=== PATIENT | female | born 1990 | race Caucasian/White ===

== ENCOUNTER 2022-08-27 15:57 | Inpatient (IN) | payer OTHER, SELFPAY ==
[2022-08-27] VITALS (57 sets, daily range): BP systolic 88–153; BP diastolic 50–78; PULSE 68–105; RESP 16; TEMP 36.6–37.1; O2SAT 87–100; BMI 25.8
[2022-08-27] MEDS: LACTATED RINGERS 1000 ML 1,000 ML 999 ML IV ×3 (16:19→20:42)
[2022-08-27 16:27] LABS: Basophils Percent Auto 0.1 % (0.0-3.0); Eosinophils Percent Auto 0.5 % (0.0-7.0); Hematocrit 29.7 % (33.0-51.0); Hemoglobin* 9.3 gm/dL (12.0-16.0); Immature Granulocytes Pct Auto 0.5 %; Lymphocytes Percent Auto 14.4 % (20-44); Mean Corpuscular HGB Conc 31 gm/dL (32-36); Mean Corpuscular Hemoglobin 28 pg (26-34); Mean Corpuscular Volume 88 fL (80-100); Monocytes Percent Auto 6.4 % (0.0-11.0); Neutrophils Percent Auto 78.1 % (42.0-72.0); Platelet Count* 326 K/uL (140-440); RDW Coefficient of Variation % 16.3 % (11.5-15.5); Red Blood Count 3.38 m/uL (4.00-5.20); White Blood Count* 14.04 K/uL (4.50-11.00)
[2022-08-27 16:41] LABS: SARS PCR* Negative SARS-CoV-2 (Negative)
[2022-08-27] MEDS: LIDOCAINE 2% (PF) 5 ML VIAL EPIDURAL (16:44)
[2022-08-27] MEDS: ROPIVACAINE 0.2% 100 ml 100 ML 12 MG EPIDURAL ×2 (16:44→23:30)
[2022-08-27 16:50] LABS: Slide Review Reflex No
--- NOTE | 2022-08-27 16:57 | P.ANBPRC_ITS ---
[facility] Social History Smoking Status: Never smoker Results Labs Labs: Laboratory Results - last 24 hr 08/27/22 08/27/22 15:50 16:14 WBC 14.04 H RBC 3.38 L Hgb 9.3 L Hct 29.7 L MCV 88 MCH 28 MCHC 31 L RDW Coeff of Kurt 16.3 H Plt Count 326 Neut % (Auto) 78.1 H Lymph % (Auto) 14.4 L Burnett % (Auto) 6.4 Eos % (Auto) 0.5 Baso % (Auto) 0.1 Neut # (Auto) 11.00 H Lymph # (Auto) 2.00 Burnett # (Auto) 0.90 Eos # (Auto) 0.10 Baso # (Auto) 0.00 Abs Immat Gran (auto) 0.10 Imm/Tot Granulo (auto) 0.5 SARS-CoV-2 (PCR) Negative SARS-CoV-2 Vital Signs Vital Signs: Last Vital Signs Pulse 83 08/27/22 16:56 BP 115/55 L 08/27/22 16:56 Pulse Ox 100 08/27/22 16:46 Anesthesia Procedures Epidural Insertion Patient Location: OB Start Time: 16:00 Stop Time: 17:00 Start Date: 08/27/22 Stop Date: 08/27/22 Reason for Block: procedure for pain Patient Position: sitting Performed By: Anny Arreola Preanesthetic Checklist: IV checked, risks and benefits discussed, monitors and equipment checked, pre-op evaluation, timeout performed and anesthesia consent Prep: chlorhexidine gluconate Monitoring: blood pressure monitoring, continuous pulse oximetry and heart rate Approach: midline Vertebral Space: lumbar (1-5) Epidural Technique: TAMARA saline Needle Type: Tuohy needle Injection Technique: continuous catheter (continuous catheter) Needle gauge: 17 Needle Length (cm): 10 cm Needle Insertion Depth (cm): 5 Catheter Gauge: 19 Catheter Type: multi-orifice Catheter at skin depth (cm): 14 Test Dose Result: negative and lidocaine 1.5% with epinephrine 1 to 200,000
--- NOTE | 2022-08-27 17:02 | PM.OBHPLI ---
OB - H&P: HPI Labor/Induction History of Present Illness Time Seen by Provider: 17:03 Date Seen: 08/27/22 Chief Complaint: Gestational age: 38 weeks 1/7 days HPI: Summer is a 32-year-old 4 para 1021 who is being admitted to the center in labor. Her care was performed in [place] and she was planning on delivering at [address] but was diverted here as there Center is reported to be full. She saw Dr. Edward for care. Painful contractions started approximately noon today. Her water is not broken. Baby has been moving normally. Her contractions are approximately every 3 minutes. She would like to have an epidural for labor analgesia. Per the patient's report her blood type is A positive and GBS status is negative. Awaiting chart. Patient states that she had significant anemia in and had an iron infusion last weekend on 08/21/2022. She also underwent an external cephalic version for fetus in breech presentation on 08/24/2022 that was successful. The fetus was noted to be vertex at her clinic visit on 08/25/2022. I performed a bedside ultrasound which confirmed vertex presentation. CBC and type and screen were ordered. ALLERGIES: NKDA MEDICATIONS: See EMR OBSTETRIC HISTORY: G 4 P 1021. One Vaginal delivery, 0 C-sections, 2 miscarriages, and 0 abortions. 1 living child. Delivery history: 1. 2020: 38 and 5/7th weeks. Vacuum assisted vaginal delivery for prolonged 2nd stage. Male, Joaquin. [facility] [id number] [facility] in [place], [place] GYNECOLOGIC HISTORY: History of sexually transmitted infections: No. History of PID: No History of MRSA: No Last pap smear: not sure. MEDICAL HISTORY: 1. Anemia affecting in the 3rd trimester. SURGICAL HISTORY: 1. [place] teeth. SOCIAL HISTORY: Relationship status: . 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 Blood transfusion is acceptable if needed. Smoker: No, lifetime nonsmoker. E-cigs: No. Alcohol: No: None during . Illicit or recreational drug use: No. Dietary Restrictions: None She feels safe at home. She denies abuse. FAMILY HISTORY: No family history of: defects, stillbirth, multiple losses, inherited or genetic abnormalities or developmental delay. 13 POINT COMPREHENSIVE REVIEW OF SYSTEMS: negative other than as dictated above. GENERAL APPEARANCE: Pleasant, , well-groomed woman, breathing through contractions VITAL SIGNS: as noted in nursing notes HEAD: Normocephalic, atraumatic. THYROID: no masses, nodularity, tenderness or enlargement. LUNGS: Clear to auscultation bilaterally without wheezes, rales or rhonchi. HEART: Regular rate and rhythm with normal S1 and S2. No gallop, rub or murmur. ABDOMEN: Gravid. Soft, nontender, nondistended, with normal bowels sounds throughout. FUNDAL HEIGHT: 38 cm PRESENTATION: Vertex by bedside ultrasound. EFM: Baseline: 120s, moderate variability, positive accelerations, negative decelerations. Reactive. Category 1. SVE per nursincm/ 80 %/ High w/ bulging bag of water. EXTREMITIES: No cyanosis, clubbing, or edema. (-) varicosities. NEUROLOGIC: Normal gait and balance. Normal deep tendon reflexes at bilateral patella 2+/2, equal without clonus. PSYCHIATRIC: alert and oriented x3. Normal speech pattern, eye contact and affect. SKIN: Warm, dry, and well perfused. Good turgor. No lesions, nodules or rashes. ASSESSMENT: Uasmjz-[id number]-fpwr-old G 4 P 1021 at 38 and 1/7 weeks gestation in labor. PLAN: 1. Admission to the center. 2. Patient desires epidural for labor analgesia 3. Expect vaginal delivery. 4. GBS negative 5. Blood type A positive 6. AROM when able. 7. Awaiting record. Chief complaint: Maternity Narrative: Summer Grimaldo is a 32 year old female OB - H&P: Exam Physical Exam: Vital signs: Pulse BP Pulse Ox 83 115/55 L 100 08/27/22 16:56 08/27/22 16:56 08/27/22 16:46 OB - Results Labs Labs: Short CBC 08/27/22 Range/Units 16:14 WBC 14.04 H (4.50-11.00) K/uL Hgb 9.3 L (12.0-16.0) gm/dL Hct 29.7 L (33.0-51.0) % Plt Count 326 (140-440) K/uL
[2022-08-27] MEDS: PHENYLEPHRINE 100 MCG/ML SYRINGE IVP ×3 (19:16→19:51)
[2022-08-27] MEDS: ePHEDrine sulfate 5 MG/ML inj 10 MG IVP (19:59)
[2022-08-27] MEDS: OXYTOCIN 30 unit/500 ML in NS 30 UNIT/500 ML BAG IVPB (23:35)
--- NOTE | 2022-08-27 23:56 | P.OBPN_ITS ---
Subjective Time Seen by Provider: 23:57 Date Seen: 08/27/22 Narrative: Subjective: Patient is comfortable w/ epidural. AROM performed at approximately 9pm. At that time: SVE: 6cm/90%/-1. Vital signs: Per electronic medical record. EFM: Baseline 130, + accelerations, no decelerations, moderate variability, reactive. Category 1. [place]: Contractions every 2 minutes. SVE: 6 cm/90%/-1 small amount of caput. Assessment: 32-year-old 4 para 1021 at 38 weeks 1 day gestation labor with no cervical change management consultant 2.5 hours Plan: 1. Start Pitocin for augmentation of labor, the patient's contractions are close together so an IUPC may be needed to dose Pitocin safely. 2. The patient has an epidural for labor analgesia. Objective Vital Signs: Last Vital Signs Temp 97.9 F 08/27/22 15:19 Pulse 71 08/27/22 23:45 Resp 16 08/27/22 15:19 BP 91/54 L 08/27/22 23:45 Pulse Ox 99 08/27/22 20:02
[2022-08-28] VITALS (59 sets, daily range): BP systolic 92–129; BP diastolic 50–98; PULSE 73–106; RESP 14–20; TEMP 36.6–37.4; O2SAT 97–100
[2022-08-28] MEDS: LACTATED RINGERS 1000 ML 1,000 ML 125 ML IV (02:42)
--- NOTE | 2022-08-28 02:46 | P.OBPN_ITS ---
Subjective Time Seen by Provider: 02:47 Date Seen: 08/28/22 Narrative: Subjective: Patient is comfortable w/ epidural. Pitocin: 3 milliunits/minute. Verbal consent obtained to place an intrauterine pressure catheter if her cervix remains 6 cm dilated. Vital signs: Per electronic medical record. EFM: Baseline 130-140, (+) accelerations, (-) decelerations, moderate variability, reactive. Category 1. [place]: Contractions every 2 minutes. IUPC placed. SVE: 6 cm/90%/-1. Small amount of caput. Assessment: 32-year-old 4 para 1021 at 38 weeks 2 days gestation augmentation of labor after spontaneous onset of labor with no progress in dilation over the last 5 hours. Plan: 1. Continue Pitocin per labor augmentation protocol. 2. Inadequate labor by preeti parkinson. Objective Vital Signs: Last Vital Signs Temp 98.8 F 08/27/22 23:35 Pulse 76 08/28/22 02:45 Resp 16 08/27/22 15:19 BP 105/57 L 08/28/22 02:45 Pulse Ox 99 08/27/22 20:02
[2022-08-28] MEDS: ONDANSETRON 2 MG/ML inj 4 MG IV (03:23)
[2022-08-28] MEDS: ROPIVACAINE 0.2% 100 ml 100 ML 12 MG EPIDURAL (04:00)
--- NOTE | 2022-08-28 04:47 | P.OBPN_ITS ---
Subjective Time Seen by Provider: 04:48 Date Seen: 08/28/22 Narrative: Subjective: Patient is comfortable with an epidural. She received a bolus of her epidural approximately 4:15 a.m. Pitocin: 10 milliunits/minute. Starting in approximately 4:28 a.m. There was noted to be repetitive late decelerations. Vital signs: Per electronic medical record. EFM: Baseline 140's, (-) accelerations, +) repetitive late decelerations over the last 20 minutes, moderate variability, non-reactive. Category 2. IUPC: Contractions every 2-4 minutes. [place] units: 120-135/10 minutes SVE: Deferred. Assessment: 32-year-old 4 para 1021 at 38 weeks 2 days gestation with no progress in the active phase of labor, inadequate contractions with IUPC, repetitive late decelerations in the last 20 minutes. Plan: 1. Stop pitocin now: restart at 5mu/min once a reactive tracing is re-est ablished. 2. If late decelerations are persistent and repetitive after stopping pitocin or reoccur once Pitocin is restarted will likely recommend primary for non-reassuring heart rate tracing remote from delivery. Objective Vital Signs: Last Vital Signs Temp 99.4 F 08/28/22 02:41 Pulse 76 08/28/22 04:32 Resp 16 08/27/22 15:19 BP 98/57 L 08/28/22 04:32 Pulse Ox 99 08/27/22 20:02
[2022-08-28] MEDS: TRANEXAMIC ACID 100 MG/ML INJ 1000 MG IV (07:07)
--- NOTE | 2022-08-28 07:53 | PM.OBPNL ---
Subjective Date Seen: 08/28/22 Narrative: I was asked to come in room because patient was a rim and had been unvoluntarily pushing. I evaluated at bedside and found just a anterior rim, associated most likely with a cervical nabothian cyst. Patient stated that during her last delivery she had the same thing happen and she had this pushed out I scrubbed in and tried to push the anterior lip out, which he did and got to complete. She is a great pusher. There is a significant caput and upon further evaluation of presentation, this baby is OP. We pushed for almost 1 hour with little descent past +1 and this is caput. We also tried different positions for pushing, closed knee, closed knee on the left side. Patient is exhausted, asking about alternatives. I explained that baby is too high for me to help with a vacuum, alternative is a section. Patient would like to proceed with delivery. Objective Vital Signs: Last Vital Signs Temp 99.4 F 08/28/22 02:41 Pulse 81 08/28/22 07:47 Resp 16 08/27/22 15:19 BP 109/55 L 08/28/22 07:47 Pulse Ox 99 08/27/22 20:02 Pelvic Exam Dilation (cm): 10 Effacement (%): 100 Station: 0, caput at +1 Contractions Monitor mode: Internal Contraction pattern: Regular Contraction intensity: Strong/Firm Pitocin Rate (mU/min): 0 Assessment Station: 0 Status: Category ll Heart Rate Baseline: 130 Pediatric Care Coordinator Variability: Moderate (6-25) Monitor Decelerations: Episodic Plan Plan: Unscheduled delivery. Reviewed with patient and informed consent, discussed risk of surgery including bleeding, infection, damage to nearby organs, blood clots. Discussed interventions that we perform to decrease these risks. Discussed [facility] section.
--- NOTE | 2022-08-28 10:17 | P.OBPRC_ITS ---
Procedure Pre-op/Post-op diagnoses: Pre-Op/Post-Op Diagnoses Operation Date: 08/28/22 09:15 <No data on this case meets the specified criteria> Procedure Done: only Procedure Details: Procedures Operation Date: 08/28/22 09:15 Actual Procedure Side Surgeon p Section Greer Heredia MD Commercial Baker Helper: Ranjana Barriga Estimated blood loss (mL): 882 Disposition: floor Anesthesia type: Epidural Complications: Uterine atony w/o hemorrhage, right hysterotomy extension Narrative: PREOPERATIVE DIAGNOSES: 1. Intrauterine at 38 2 /7 weeks' gestation. 2. Arrest of descent, OP presentation POSTOPERATIVE DIAGNOSES: 1. Intrauterine at 38 2 /7 weeks' gestation. 2. OP presentation NAME OF PROCEDURE: Primary low transverse section. ANESTHESIA: Epidural COMPLICATIONS: Uterine atony w/o hemorrhage, right hysterotomy extension Quantitative BLOOD LOSS: 882mL DRAINS: [place] to gravity. FINDINGS: Live-born male infant, OP presentation, Apgars 9 and 9 at 1 and 5 minutes respectively. weight 7 lb 14 oz. PROCEDURE: After obtaining informed consent, the patient was taken to the operating room where epidural anesthesia was obtained and found to be adequate. She was prepared and draped in the normal sterile fashion in the dorsal supine position with a leftward tilt. A Pfannenstiel skin incision was made with a scalpel about 2 cm above symphysis pubic bone, 8-10 cm in length. This incision was carried down to the underlying layer of fascia with the Bovie and scalpel. The fascia was incised in the midline and the incision extended laterally. The rectus muscles were then in the midline. The [place] O retractor was then placed into the incision. The lower uterine segment was then incised in a transverse fashion with the scalpel. Upon entry into the uterus, meconium stained amniotic fluid was noted. The uterine incision was extended cephalo caudally with blunt finger fractionation. head was brought to incision and turned to ROT presentation and wit fundal pressure delivery of the head was performed atraumatically followed by the remainder of the body. The cord was do ubly clamped and cut, and the infant was handed off the field to warmer for evaluation. The placenta was delivered spontaneously with umbilical cord traction and fundal massage. The uterus was cleared of all clots and debris. Hysterotomy incision extension to the right lower uterine segment of about 4cm. The uterine incision was reapproximated in a running locking fashion with a 0 Vicryl suture. A 2nd layer of the same suture was used to imbricate in horizontal fashion. The gutters were inspected and cleared of blood clot. Santo utilized to further help with hemostasis of small bleeding vessels at the lower uterine segment bilaterally. All instruments and retractors were removed. Peritoneum layer closed with Vicryl 3-0.The subfascial tissues were carefully inspected and hemostasis assured. The fascia was reapproximated in a running fashion with a looped 0 Vicryl suture. The subcutaneous tissues were inspected and hemostasis was assured. The subcutaneous fat layer was not reapproximated since it was ;ess than 2cm. The skin was closed in a subcuticular fashion with 4-0 Vicryl. LiquiBand and dressing were applied. The patient tolerated the procedure well. Sponge, lap, needle, and instrument counts were reported as correct x2. The patient was taken to the recovery room, awake, and in stable condition. She did receive 2 grams of IV Ancef preoperatively. In order to control bleeding, Methergine was utilized to help with uterine tone while the uterus was beign closed. Also a 1g dose of TXA given during procedure. Again, knowing that we started with a lower hemoglobin to help prevent heavier bleeding. Patient had already received one dose of TXA during delivery process when she was pushing as was expected and this was the original plan again due to concerns of starting low hemoglobin. Will follow up vital signs closely, will order routine hemoglbin tomorrow morning, unless any significant changes were to happen.
--- NOTE | 2022-08-28 10:29 | W.ANESCHARGE ---
Anesthesia Charges Start Date/Time Anesthesia Start Date: 08/28/22 Anesthesia Start Time: 08:43 Stop Date/Time Anesthesia Stop Date: 08/28/22 Anesthesia Stop Time: 10:11 Summary Emergency: Yes
--- NOTE | 2022-08-28 10:32 | W.PM.NB ---
Nerve Block Nerve Block Time Seen by Provider: 08:43 Date Seen: 08/28/22 Type of block requested by surgeon for post-operative analgesia: TAP Side: bilateral Time out performed: Yes Verification of patient name: Yes Verification of date of : Yes Site marking: site marked Name of person performing procedure: GISELLA Arreola Continuous monitoring Was continuous monitoring of O2 sat, B/P, groundwater monitoring technician, recorded every 15 minutes?: Yes Procedure Checklist: sterile prep, needles and gloves Ultrasound guided. Images saved: Yes Medications given in 5ml increments after negative aspiration: Marcaine (30 total) %: 0.25 mL: 30 Needle gauge: 20 and Exparel (10 total) mL: 5 Needle gauge: 20 Patient tolerated procedure well: Yes Block Charges Block Charge (with Pro Fee): TAP Bilateral Use of Ultrasound Machine for Block: Yes- US Guidance/pain block
[2022-08-28] MEDS: ACETAMINOPHEN 500 MG TABLET 1000 MG PO ×2 (13:43→19:42)
[2022-08-28] MEDS: KETOROLAC 30 MG/ML inj IVP ×3 (15:23→22:26)
[2022-08-29] VITALS (11 sets, daily range): BP systolic 90–96; BP diastolic 49–60; PULSE 86–102; RESP 16–18; TEMP 36.4–37.2; O2SAT 97–98
[2022-08-29] MEDS: KETOROLAC 30 MG/ML inj IVP ×2 (04:29→10:56)
[2022-08-29 04:34] LABS: Hemoglobin* 7.4 gm/dL (12.0-16.0)
[2022-08-29] MEDS: DOCUSATE SODIUM 100 MG CAPSULE PO (08:24)
[2022-08-29] MEDS: FERROUS SULFATE 325 MG TABLET PO (08:24)
--- NOTE | 2022-08-29 09:48 | PM.OBPNCS1 ---
OB - PN: A/P Assessment and Plan (1) Status post delivery: Status: Acute Assessment and Plan: Postoperative day 1, doing well. Postop hemoglobin 7.4 mg/dL, patient started with hemoglobin at 9.6 mg/dL, this is consistent with surgical blood loss. Recommendation was given for blood transfusion. We reviewed other alternatives such as IV iron, oral iron therapy and how this would take a longer time to improve her hemoglobin. Patient also states that she always has her hemoglobin low in the 9 range even prior to , recommended for her to be evaluated by a creative director . Patient accepts blood transfusion will proceed with this today. Will repeat a hemoglobin at least 4-6 hours after blood transfusion. Otherwise, continue routine postop cares, patient would like to consider to go home tomorrow if everything continues to be stable. OB - PN: Subj Subjective Date Seen: 08/29/22 Patient comments: pain well controlled, tolerating diet and flatus present [place] infant status: and doing well Narrative: Patient has been doing well, pain is well controlled, no nausea or vomiting, she has been able to urinate and has paased gas. Hemoglobin was 7.4mg/dL. Patient denies SOB, heart palpitations, dizziness with standing up or walking. OB - PN: Obj Exam Physical Exam: Vital signs: Temp Pulse Resp BP Pulse Ox O2 Del Method 97.6 F 93 16 95/51 L 97 08/29/22 08:26 08/29/22 08:26 08/29/22 08:26 08/29/22 08:26 08/29/22 08:26 08/29/22 08:26 Narrative: VITAL SIGNS: As noted above. GENERAL APPEARANCE: Alert, cooperative female in no acute distress. MOOD & AFFECT: Normal. Chest: Clear to auscultation bilaterally, regular rate rhythm of the heart. ABDOMEN: Soft, non-distended and nontender. Incision healing well, no surrounding erythema, induration or abnormal discharge. : Normal lochia. EXTREMITIES: Nonedematous. Well perfused. Nontender. Urinary Catheter Management: Urethral: Cath placed during this visit: yes, but has since been removed by the nurse Reason for continuing: surgical procedure Insertion date: 08/28/22 Insertion time: 08:50 Removal date: 08/28/22 Removal time: 19:50 OB - PN: Obj Data Labs Labs: Laboratory Results - last 24 hr 08/27/22 08/29/22 16:14 03:37 Hgb 7.4 L* Crossmatch (AHG) See Detail
[2022-08-29] MEDS: IBUPROFEN 600 MG TABLET PO (17:12)
[2022-08-29] MEDS: ACETAMINOPHEN 500 MG TABLET 1000 MG PO (20:21)
[2022-08-30 00:10] VITALS: BP 97/60; PULSE 72; RESP 18; TEMP 36.6; O2SAT 96
[2022-08-30 06:23] LABS: Hemoglobin* 8.4 gm/dL (12.0-16.0)
[2022-08-30] MEDS: DOCUSATE SODIUM 100 MG CAPSULE PO (07:50)
[2022-08-30] MEDS: FERROUS SULFATE 325 MG TABLET PO (07:51)
[2022-08-30] MEDS: IBUPROFEN 600 MG TABLET PO (07:51)
[2022-08-30 07:53] VITALS: BP 109/64; PULSE 81; RESP 18; O2SAT 96
--- NOTE | 2022-08-30 08:35 | P.DS_ITS ---
DS: Providers Provider Time Seen by Provider: 08:00 Date Seen: 08/30/22 Date of admission: 08/27/22 15:57 Primary care physician: Not a Local Provider Admitting Clinician: Ashley Cannon MD Attending Physician on discharge: Ashley Cannon MD Date of Discharge: 08/30/22 DS: Diagnosis Discharge Diagnosis (1) Status post delivery: Status: Acute (2) Lactating mother: Status: Acute (3) Anemia: Status: Acute Exam Narrative: Exam Narrative: GENERAL APPEARANCE:? normal affect, alert, no distress? MOOD:? appropriate? CHEST:? clear to auscultation and percussion? HEART:? regular rate and rhythm? ABDOMEN:? soft, non-tender the uterine fundus is 1 cm Below Umbilicus, Midline and is appropriate for the stage of recovery.? PERINEUM:? exam declined.? EXTREMITIES:? normal and no edema? Skin: Incision well approximated without drainage, redness or edema. No active bleeding?? Doing well? She is requesting discharge home.? Const: Vital Signs, click to edit/add: Vital Signs - 24 hr 08/29/22 12:51 08/29/22 13:11 08/29/22 13:54 Temperature 98 F 98.2 F 98.2 F Pulse Rate 92 102 H 102 H Pulse Rate [Blood Pressure Cuff] Respiratory Rate 18 18 18 Blood Pressure 90/52 L 96/59 L 93/60 Blood Pressure [Ri ght Arm] Pulse Oximetry 97 98 97 Oxygen Delivery Me thod 08/29/22 13:57 08/29/22 15:31 08/29/22 15:32 Temperature 98.3 F 98.9 F 98.9 F Pulse Rate 100 98 Pulse Rate [Blood Pressure Cuff] 98 Respiratory Rate 18 18 18 Blood Pressure 93/58 L Blood Pressure [Ri ght Arm] Pulse Oximetry 97 98 98 Oxygen Delivery Me thod Room Air 08/30/22 00:10 08/30/22 07:53 Temperature 98 F Pulse Rate Pulse Rate [Blood Pressure Cuff] 72 81 Respiratory Rate 18 18 Blood Pressure Blood Pressure [Ri ght Arm] 97/60 109/64 Pulse Oximetry 96 96 Oxygen Delivery Me thod Room Air Room Air Documenting provider has reviewed patient's vital signs: yes DS: Data Data Completed and Pending Labs on day of discharge: Labs from last 24 hours 08/30/22 08/27/22 06:15 16:14 Hgb 8.4 L Blood Type A Positive Antibody Screen NEGATIVE Crossmatch (G) See Detail OB - DS: Summary Hospital Course Hospital Course: Patient is a 32year old, G 4 now P 2? admitted on 08/27/2022 at 38 Weeks, 2 Days gestation for active labor.? She had an uncomplicated delivery after pushing for 1 hour for failure to descend.? She delivered a viable male infant.? She is breast feeding and reports things are well.? the patient has done well.? Her pain is well controlled with current medications.?She is having some abdominal tenderness but states that it feels similar to the soreness that she experienced after her previous delivery She has no new complaints.? Vitals have been stable. She has remained afebrile. She is voiding without difficulty. She is passing gas and has not had a bowel movement. She is anemic but is ambulating without difficulty and denies any dizziness or weakness. she has had anemia throughout her and has been encouraged to see hematology . She is unsure what she is planning for control.?Options compatible with reviewed. She is unsure at this time if she will follow up here or with her provider in [place] whom she saw throughout her .?? Peripartum Data Procedures: Procedures Operation Date: 08/28/22 09:15 Actual Procedure Side Surgeon p Section Greer Heredia MD complications: none [place] Infant Gender: Male Infant Discharge Plan: Home Status at Discharge Functional status at discharge: independent ambulation Overall status at discharge: patient is progressing back to baseline Time Spent with Patient Time attestation: Total time spent providing and/or coordinating discharge services: Discharge Plan Discharge Disposition: Home, Self-Care Date of Admission: 08/27/22 15:57 Attending Provider on Discharge: Alessandra Flores Primary Care Provider: Provider,Not a Local Condition: Stable Anticipated Discharge Date/Time: 08/30/22 10:00 Discharge Medications: New docusate sodium 100 mg Capsule 100 mg PO DAILY Qty: 100 0RF ibuprofen 600 mg Tablet 600 mg PO Q6H PRN (Reason: Pain) Qty: 90 0RF oxycodone 5 mg Tablet 5 - 10 mg PO Q4H PRN (Reason: Pain) Qty: 7 0RF Discharge Orders: Discharge Order (Routine); Ordered 08/30/22 Ordered By: Alessandra Flores Patient Education: OB Over the Counter Medication Information, OB /Breast Feeding Additional Instructions: Discharge instructions were reviewed with the patient including signs and symptoms of infection and home going medications Activity restrictions: Lifting Restrictions: 20 pounds for 6 weeks No high-impact or core exercises for 6 weeks. No not submerge incision under water X 2 weeks? Nothing vaginally for 6 weeks: no tampons or intercourse Do not drive while taking narcotic pain medication(s) Off Work or School for 8 weeks Follow up visits: 1. 1 week visit: incision check. 2. 2-week visit: discuss infant feeding/care concerns, review control options and screen for anxiety/depression. 3. 6-week visit for an annual exam. consultation services are available to all mothers and babies for the first year after delivery.? To make an appointment, please call [phone].? Activity Level: Activity as Tolerated and Light activity Discharge Diet: Regular Follow Up Appointments: [facility] [Provider Group] Provider,Not a Local [Primary Care Provider] - Forms: [employer] Info Instructions
== END 2022-08-30 11:55 | disposition home or self-care (01) | DRG 787 ==
LOC: OB OUT 15:58 → OB 15:58
PROVIDERS: Obstetrics & Gynecology; Admitting Provider Obstetrics & Gynecology; Visit Provider Obstetrics & Gynecology
PROC: 10D00Z1 Extraction of Products of Conception, Low, Open Approach (ICD-10-PCS; CPT 59514; principal; 2022-08-28 09:00)
DX: O99.02 Anemia complicating childbirth (principal); D62 Acute posthemorrhagic anemia; D64.9 Anemia, unspecified; O76 Abnormality in fetal heart rate and rhythm complicating labor and delivery; O32.4XX0 Maternal care for high head at term, not applicable or unspecified; O62.2 Other uterine inertia; Z3A.38 38 weeks gestation of pregnancy; Z37.0 Single live birth
CPT/HCPCS: 01967; 01968; 36415; 36430; 64488; 76942; 85018; 85025; 86850; 86900; 86901; 86922; 87635; 99140; A9270; C9290; J1885; J2274; J2370; J2405; J2590; J2795; J3010; J3490; J7120; P9016